=== PATIENT | male | born 1965 | race Caucasian/White ===

== ENCOUNTER 2016-12-27 07:16 | Emergency (ER) | payer OTHER ==
[2016-12-27 07:30] VITALS: BP 153/94
== END 2016-12-27 07:50 | disposition left against medical advice (07) ==
LOC: ED 07:16
DX: R09.89 Other specified symptoms and signs involving the circulatory and respiratory systems (principal)
CPT/HCPCS: 99281

== ENCOUNTER 2016-12-27 08:41 | Emergency (ER) | payer OTHER ==
[2016-12-27 08:55] VITALS: BP 132/75
== END 2016-12-27 09:35 | disposition left against medical advice (07) ==
LOC: UCEAST 08:41
DX: R51 Headache (principal); R05 Cough; Z53.21 Procedure and treatment not carried out due to patient leaving prior to being seen by health care provider

== ENCOUNTER 2017-07-12 07:51 | Day surgery (SDC) | payer OTHER ==
[~2017-07-12 07:51] MED LIST: Buffered Lidocaine 0.9% SYRIN* 5 ML/SYR SYRINGE INTRADERM ONE; Sodium Citrate/Citric Acid* 15 ML UDC PO ONE
[2017-07-12] MEDS ORDERED: ceFAZolin 2 GM PREMIX (*) 2 GM/50 ML BAG IVPB ONE (08:01)
[2017-07-12] MEDS ORDERED: Sodium Citrate/Citric Acid* 15 ML UDC ONE (08:01)
[2017-07-12] MEDS ORDERED: Midazolam* 1 MG/ML 2 ML VIAL (2 MG) ONE ×2 (09:12→11:23)
[2017-07-12] MEDS ORDERED: fentaNYL* 50 MCG/ML 2 ML VIAL (100 MCG VIAL) ONE ×3 (09:12→13:20)
[2017-07-12] MEDS ORDERED: Lidocaine 2% PF * 5 ML VIAL ONE (09:12)
[2017-07-12] MEDS ORDERED: Propofol* 10 MG/ML 20 ML BTL IV PUSH ONE (09:12)
[2017-07-12] MEDS ORDERED: Bupivacaine 0.25% SDV* 30 ML ONE (09:23)
[2017-07-12] MEDS ORDERED: Ondansetron INJ* 2 MG/ML VIAL IV PRN (09:35)
[2017-07-12] MEDS ORDERED: Ketorolac INJ* 30 MG/ML 1 ML VIAL IV PRN (09:35)
[2017-07-12] MEDS ORDERED: Dexamethasone IV* 4 MG/ML 1 ML (4 MG) ONE (09:50)
[2017-07-12] MEDS ORDERED: Ketorolac INJ* 30 MG/ML 1 ML VIAL ONE (13:01)
[2017-07-12] MEDS ORDERED: Ondansetron INJ* 2 MG/ML VIAL ONE (13:02)
[2017-07-12] MEDS ORDERED: HYDROcodone/ACETAMIN 5-325 MG* 1 TAB ONE ×2 (13:20→13:43)
[2017-07-12] MEDS: fentaNYL* 50 MCG/ML 2 ML VIAL (100 MCG VIAL) IV PRN ×2 (13:24→13:50)
[2017-07-12 14:54] VITALS: BP 118/78
--- NOTE | 2017-07-13 04:53 | OP ---
DATE OF OPERATION: 07/12/17 - [facility] DATE OF : 65 SURGEON: Jimbo Alexander MD FLATWORK FOLDER: LYLE Henry. An assistant casino shift manager was needed for the entirety of the procedure to aid in positioning of the arm and retraction. ANESTHESIOLOGIST: Dr. Carlson. ANESTHESIA: General. PRE-OP DIAGNOSIS: Left hand severe Dupuytren's contractures with severe contractures of middle, ring and completely flexed down small finger with contractures at the MCP and PIP joints. POST-OP DIAGNOSIS: Left hand severe Dupuytren's contractures with severe contractures of middle, ring and completely flexed down small finger with contractures at the MCP and PIP joints. OPERATIVE PROCEDURE: 1. Excision of Dupuytren's disease, left palm and middle finger. 2. Excision of Dupuytren's disease, left palm and ring finger. 3. Excision of Dupuytren's disease, left palm and small finger. INDICATIONS: Peter has severe disease bilaterally. He recently injured his foot and so he is laid up and he thought this would be a good time to have intervention done on the hands. I recommended a XIAFLEX injection for the right hand and I told him that given the severity of the disease on the left, it would be better served by surgery. We had an extensive conversation about the small finger. I told him that given the severity of the contracture, we could try Digit Widget preoperatively; however, he does not have that much time to invest and wants to see how much correction he could get with release of the Dupuytren's disease. I told him that he would certainly get quite a bit of contracture remaining even after full Dupuytren's release as the finger has been down in the palm for quite sometime. He understands we may need to a Digit Widget in the future to see if we can get improvement in the contracture. ESTIMATED BLOOD LOSS: 5 mL. COMPLICATIONS: None. FINDINGS: As expected. DESCRIPTION OF PROCEDURE: Peter was seen in the preoperative holding area. The correct side, site and the procedure were identified. We came back to the operating room, the arm was prepped and draped in the usual fashion. A time- out was performed. The arm was exsanguinated with the Esmarch and the tourniquet inflated to 250 mmHg. I then made a longitudinal incision in line with the middle finger and marked out my anticipated Z-plasty flaps prior to making the incision at the joint creases. I went ahead and identified the cord proximally and raised the skin flaps the dermis from the cord. I went ahead and released the cord proximally and then followed out distally releasing the vertical septi on either side of the tendon deep at where they came off the metacarpal. Great care was taken to preserve the neurovascular bundles on either side. As I came out distal, I went ahead and released it off the tendon sheath and down on to the proximal phalanx. Also, there was a spiral cord coming out on to the middle finger with the digital neurovascular bundle draped over the spiral cord. Great care was taken to preserve the neurovascular bundle while this was excised. I then made a similar incision over the ring finger. Skin flaps were raised. The cord was transected proximally and then excised out distally taking great care to preserve the neurovascular bundle, again there was a spiral cord and then bit of a retrovascular cord as well. I went ahead and released and excised all of the Dupuytren's tissue in the ring finger all the way up to the middle phalanx. I then turned my attention to the small finger, I worked very slow and started in the palm. The Dupuytren's cord was released proximally. The excision was carried out distally. The spiral cord on the radial side of the finger was released taking care to preserve the neurovascular bundle. Once all the Dupuytren's tissue was excised, I was able to fully extend the finger out, it was very tight and definitely came back into about 60 to 70 degrees of flexion at the PIP joint. I examined the finger for any more Dupuytren's tissue, I could not locate any and at this point, I went ahead and irrigated out all the wounds. I first came to my middle finger and I raised my Z-plasty flaps, these were transposed. The flaps were taken at 45-degree angles. I did the same for the middle and small fingers. When all was said and done, there was a triangular area over the A1 cullen area of the small finger where there was not adequate skin, so I went ahead and left that wound open. All the wounds were closed with 4-0 nylons, simple interrupted sutures. All the operative sites were infiltrated with 0.25% Marcaine. Tourniquet was deflated. All the fingers pinked up. The wounds were dressed with Xeroform, 4x4s, sterile Webril and a splint was applied holding the middle and ring fingers in full extension and the small finger in as much extension as possible. He was then woken up and taken to recovery room in stable condition. [id number]/[facility] #: [id number] MTDMariah
== END 2017-07-12 14:49 | disposition home or self-care (01) ==
LOC: OREAST 07:51
PROVIDERS: ATTEND Orthopaedic Surgery Hand Surgery
DX: M72.0 Palmar fascial fibromatosis [Dupuytren] (principal); F17.210 Nicotine dependence, cigarettes, uncomplicated
CPT/HCPCS: 88304; A9270-GY; J0690; J1100; J1885; J2250; J2405; J2704; J3010

== ENCOUNTER 2019-09-26 12:38 | Emergency (ER) | payer BC, OTHER ==
[2019-09-26 13:51] LABS: ABS Eosinophils 0.1 10^3/ul (0-0.6); ABS Lymphocytes 2.3 10^3/ul (1.0-4.8); ABS Monocytes 0.7 10^3/ul (0-0.8); ABS Neutrophils 4.8 10^3/ul (1.5-7.7); Eosinophil % 1.2 %; Hematocrit 46 % (42-52); Hemoglobin 16.8 g/dL (14.0-18.0); Mean Corpuscular HGB Conc 36 g/dL (31-36); Mean Corpuscular Hemoglobin 33 pg (27-31); Mean Corpuscular Volume 90 fL (80-94); Mean Platelet Volume 7.5 fL (7.4-10.4); Platelet Count 214 10^3/uL (150-450); Red Blood Count 5.15 10^6 /uL (4.18-5.48); Red Cell Distribution Width 13 % (10-15); White Blood Count 7.9 10^3/uL (3.5-10.8)
[2019-09-26 14:02] LABS: Albumin 4.5 g/dL (3.2-5.2); Albumin/Globulin Ratio 1.5 (1-3); BUN/Creatinine Ratio 12.2 (8-20); C Reactive Protein 6.36 mg/L (<8.01); Calcium 9.7 mg/dL (8.6-10.3); EGFR African American 96.4 (>60); EGFR Non-African American 79.7 (>60); Globulin 3.1 g/dL (2-4); Potassium 3.4 mmol/L (3.5-5.0); Total Bilirubin 0.5 mg/dL (0.2-1.0); Total Protein 7.6 g/dL (6.4-8.9)
--- NOTE | 2019-09-26 14:33 | ED ---
HPI Chest Pain - HPI Summary HPI Summary: This pt is a 54 Y/O M presenting to [facility] with a CC of L sided CP that is rated a 4/10 in severity and began on 09/23/2019. He states that he also has SOB and diaphoresis. When he takes a deep breath he states that the pain radiates to his back. He states that prior to the CP he had diarrhea that he believes was caused by drinking excessive amounts of alcohol. He denies any fever, headaches , chills, and abdominal pains. He denies any aggravating or alleviating factors. He has no pertinent PMHx. He has a SHx of cigarette use, alcohol, and states that he smokes marijuana. - History of Current Complaint Chief Complaint: EDChestPainROMI Time Seen by Provider: 09/26/19 13:50 Hx Obtained From: Patient Onset/Duration: Started Days Ago - 3 Timing: Constant Initial Severity: Moderate Current Severity: Moderate Pain Intensity: 4 Pain Scale Used: 0-10 Numeric Chest Pain Location: Discrete at:, Left Anterior Chest Pain Radiates: Yes Chest Pain Radiates To:: Back - with cough Aggravating Factor(s): Nothing Alleviating Factor(s): Nothing Associated Signs and Symptoms: Positive: Negative - diarrhea, Chest Pain, Shortness of Breath, Nausea, Cough. Negative: Headaches, Fever, Chills, Abdominal Pain - Allergy/Home Medications Allergies/Adverse Reactions: Allergies Allergy/AdvReac Type Severity Reaction Status Date / Time No Known Allergies Allergy Verified 09/26/19 12:48 Home Medications: Home Medications NK [No Home Medications Reported] 09/26/19 [History Confirmed 09/26/19] PMH/Surg Hx/FS Hx/Imm Hx Previously Healthy: Yes Endocrine/Hematology History: Denies: Hx Diabetes, Hx Thyroid Disease Cardiovascular History: Denies: Hx Hypertension, Hx Pacemaker/ICD Respiratory History: Denies: Hx Asthma, Hx Chronic Obstructive Pulmonary Disease (COPD) GI History: Denies: Hx Ulcer History: Denies: Hx Renal Disease Sensory History: Denies: Hx Contacts or Glasses, Hx Hearing Aid Opthamlomology History: Denies: Hx Contacts or Glasses Neurological History: Reports: Hx Migraine - treats with ibuprofen Denies: Hx Seizures, Other Neuro Impairments/Disorders Psychiatric History: Denies: Hx Panic Disorder - Cancer History Hx Chemotherapy: No Hx Radiation Therapy: No - Surgical History Surgical History: Yes Surgery Procedure, Year, and Place: APPENDIX A CHILD, CERVICAL SPINE FUSION 12+ YRS AGO Hx Anesthesia Reactions: Yes - STATES WAKES UPSET ANGRY Infectious Disease History: No Infectious Disease History: Denies: Hx Clostridium Difficile, Hx Hepatitis, Hx Human Immunodeficiency Virus (HIV), Hx of Known/Suspected MRSA, Hx Shingles, Hx Tuberculosis, Hx Known/ Suspected VRE, Hx Known/Suspected VRSA, History Other Infectious Disease, Traveled Outside the [place] in Last 30 Days - Family History Known Family History: Positive: Cardiac Disease, Hypertension - Social History Occupation: Employed Full-time Lives: With Family Alcohol Use: Weekly Alcohol Amount: ONCE PER WEEK-SEVERAL AT THAT TIME Hx Substance Use: Yes Substance Use Type: Reports: Marijuana Substance Use Comment - Amount & Last Used: WEEKLY Hx Tobacco Use: Yes Smoking Status (MU): Heavy Every Day Tobacco Smoker Amount Used/How Often: 1/2 PPD X 40+YRS Have You Smoked in the Last Year: Yes Review of Systems Negative: Fever, Chills Positive: Chest Pain Positive: Shortness Of Breath, Cough Positive: Diarrhea, Nausea. Negative: Abdominal Pain, Vomiting Negative: Headache All Other Systems Reviewed And Are Negative: Yes Physical Exam - Summary Physical Exam Summary: VITAL SIGNS: Reviewed. GENERAL: Patient is a well-developed and nourished male who is lying comfortable in the stretcher. Patient is not in any acute respiratory distress. HEAD AND FACE: No signs of trauma. No ecchymosis, hematomas or skull depressions. No sinus tenderness. EYES: PERRLA, EOMI x 2, No injected conjunctiva, no nystagmus. EARS: Hearing grossly intact. Ear canals and tympanic membranes are within normal limits. MOUTH: Oropharynx within normal limits. NECK: Supple, trachea is midline, no adenopathy, no JVD, no carotid bruit, no c- spine tenderness, neck with full ROM. CHEST: Symmetric, no tenderness at palpation. LUNGS: Clear to auscultation bilaterally. No wheezing or crackles. CVS: Regular rate and rhythm, S1 and S2 present, no murmurs or gallops appreciated. ABDOMEN: Soft, non-tender. No signs of distention. No rebound, no guarding, and no masses palpated. Bowel sounds are normal. EXTREMITIES: FROM in all major joints, no edema, no cyanosis or clubbing. NEURO: Alert and oriented x 3. No acute neurological deficits. Speech is normal and follows commands. SKIN: Dry and warm. Triage Information Reviewed: Yes Vital Signs On Initial Exam: Initial Vitals Temp Pulse Resp BP Pulse Ox 98.8 F 118 18 123/82 100 09/26/19 12:44 09/26/19 12:44 09/26/19 12:44 09/26/19 12:44 09/26/19 12:44 Vital Signs Reviewed: Yes Procedures - Sedation Patient Received Moderate/Deep Sedation with Procedure: No Diagnostics - Vital Signs Vital Signs Temp Pulse Resp BP Pulse Ox 09/26/19 12:44 98.8 F 118 18 123/82 100 - Laboratory Lab Results: Lab Results 09/26/19 09/26/19 09/26/19 Range/Units 13:23 13:23 13:23 WBC 7.9 (3.5-10.8) 10^3/uL RBC 5.15 (4.18-5.48) 10^6 /uL Hgb 16.8 (14.0-18.0) g/dL Hct 46 (42-52) % MCV 90 (80-94) fL MCH 33 H (27-31) pg MCHC 36 (31-36) g/dL RDW 13 (10-15) % Plt Count 214 (150-450) 10^3/uL MPV 7.5 (7.4-10.4) fL Neut % (Auto) 61.0 % Lymph % (Auto) 29.0 % [place] % (Auto) 8.5 % Eos % (Auto) 1.2 % Baso % (Auto) 0.3 % Absolute Neuts (auto) 4.8 (1.5-7.7) 10^3/ul Absolute Lymphs (auto) 2.3 (1.0-4.8) 10^3/ul Absolute Monos (auto) 0.7 (0-0.8) 10^3/ul Absolute Eos (auto) 0.1 (0-0.6) 10^3/ul Absolute Basos (auto) 0.0 (0-0.2) 10^3/ul Absolute Nucleated RBC 0.0 10^3/ul Nucleated RBC % 0.0 Sodium 137 (135-145) mmol/L Potassium 3.4 L (3.5-5.0) mmol/L Chloride 102 (101-111) mmol/L Carbon Dioxide 26 (22-32) mmol/L Anion Gap 9 (2-11) mmol/L BUN 12 (6-24) mg/dL Creatinine 0.98 (0.67-1.17) mg/dL Est GFR ( Amer) 96.4 (>60) Est GFR (Non-Af Amer) 79.7 (>60) BUN/Creatinine Ratio 12.2 (8-20) Glucose 130 H (70-100) mg/dL Lactic Acid 1.1 (0.5-2.0) mmol/L Calcium 9.7 (8.6-10.3) mg/dL Total Bilirubin 0.50 (0.2-1.0) mg/dL AST 19 (13-39) U/L ALT 32 (7-52) U/L Alkaline Phosphatase 91 (34-104) U/L Total Creatine Kinase Pending CK-MB (CK-2) Pending Troponin I 0.00 (<0.03) ng/mL C-Reactive Protein 6.36 (<8.01) mg/L Total Protein 7.6 (6.4-8.9) g/dL Albumin 4.5 (3.2-5.2) g/dL Globulin 3.1 (2-4) g/dL Albumin/Globulin Ratio 1.5 (1-3) Lipase 37 (11.0-82.0) U/L Result Diagrams: 09/26/19 13:23 09/26/19 13:23 Lab Statement: Any lab studies that have been ordered have been reviewed, and results considered in the medical decision making process. - Radiology CXR Radiology Interpretation Completed By: Radiologist Summary of Radiographic Findings: No acute cardiopulmonary processes by radiograph. ED physician has reviewed this report. - EKG 1242 Cardiac Rate: Tachycardia - 115 BPM EKG Rhythm: Sinus Tachycardia Summary of EKG Findings: An EKG at 1242 reveals sinus tachycardia at 115 BPM with an anterior infarct. No STEMI. No acute changes. Interpreted by Dr. Garcia at 1246 09/26/2019. Chest Pain Course/Dx - Course Assessment/Plan: This pt is a 54 Y/O M presenting to [facility] with a CC of L sided CP that is rated a 4/10 in severity and began on 09/23/2019. He states that he also has SOB and diaphoresis. When he takes a deep breath he states that the pain radiates to his back. He states that prior to the CP he had diarrhea that he believes was caused by drinking excessive amounts of alcohol. He denies any fever, headaches, chills, and abdominal pains. He denies any aggravating or alleviating factors. He has no pertinent PMHx. He has a SHx of cigarette use, alcohol, and states that he smokes marijuana. Blood test results without any significant abnormality except for potassium level of 3.4. Troponin 1 is 0.00. Troponin #2, 4 hours apart, is also 0.00. EKG shows a normal sinus rhythm without any ST elevation. Chest x-ray shows no acute pathology. In the ED course the patient was given torodal for the pain. Patient reports that all symptoms have resolved. Patient Heart score is: 1 therefore, low suspicion for CAD. Patient is not hypoxic or tachycardic. Wells criteria 0 . Therefore, no suspicion for PE. Patient has no abdominal bruit thus no suspicion for AAA. Patients pain does not radiate to the back and pain has resolved thus low suspicion for aortic dissection. I discussed all the findings and test results with the patient. Patient was instructed to return to the emergency room immediately if any of the symptoms return or worsen. Patient understands and agrees. Plan of care was discussed with the patient and patient understands and agrees. All questions were answered at patient satisfaction. There were no further complaints or concerns. PE before discharge: CVS: S1 and S2 present. No murmurs appreciated. Abdominal exam before discharge: Soft, non-tender. No signs of distention. No rebound no guarding, and no masses palpated. Bowel sounds are normal. Patient is alert and oriented x 3. Patient is hemodynamically stable. - Chest Pain Differential Diagnosis/HQI/PQRI: Acute IN, ACS, Angina, CHF, Chest Wall, GI Disease, Lower Respiratory Infection - Diagnoses Provider Diagnoses: Atypical chest pain Discharge ED - Sign-Out/Discharge Documenting (check all that apply): Patient Departure - discharge - Discharge Plan Condition: Good Disposition: HOME Patient Education Materials: Chest Pain (ED) Referrals: [facility] [Outside] Additional Instructions: PLEASE FOLLOW UP WITH THE [facility] TO HAVE HELP FINDING A PRIMARY CARE PHYSICIAN. RETURN TO THE EMERGENCY DEPARTMENT FOR ANY NEW OR WORSENING SYMPTOMS. - Billing Disposition and Condition Condition: GOOD Disposition: Home - Attestation Statements Document Initiated by Itzibkrystian: Yes Documenting Scribe: Nolberto Valadez Provider For Whom Lisbeth is Documenting (Include Credential): Amado Bianchi MD Scribe Attestation: Nolberto Lu, scribed for Amado Bianchi MD on 09/26/19 at 1828. Scribe Documentation Reviewed: Yes Provider Attestation: The documentation as recorded by the Nolberto castillo accurately reflects the service I personally performed and the decisions made by , Amado Bianchi MD Status of Scribe Document: Viewed
[2019-09-26 14:41] LABS: CKMB ng/mL 1.1 ng/mL (0.6-6.3)
[2019-09-26 14:53] LABS: INR 0.99 (0.82-1.09)
[2019-09-26] MEDS ORDERED: Ketorolac INJ* 30 MG/ML 1 ML VIAL IV PUSH ONE (15:56)
[2019-09-26] MEDS ORDERED: Potassium Chlor TAB* 20 MEQ TAB.ER PO ONE (16:17)
[2019-09-26 17:07] VITALS: BP 108/59
== END 2019-09-26 17:06 | disposition home or self-care (01) ==
LOC: ED 12:38
DX: R07.89 Other chest pain (principal); F17.210 Nicotine dependence, cigarettes, uncomplicated; Z90.89 Acquired absence of other organs
CPT/HCPCS: 36415; 71046; 80053; 82550; 82553; 83605; 83690; 84484; 85025; 85610; 85730; 86140; 93005; 99283; A9270-GY

== ENCOUNTER 2019-09-29 02:16 | Inpatient (IN) | payer BC ==
[2019-09-29 02:47] LABS: ABS Basophils 0.1 10^3/ul (0-0.2); ABS Eosinophils 0.1 10^3/ul (0-0.6); ABS Lymphocytes 2.5 10^3/ul (1.0-4.8); ABS Monocytes 1.2 10^3/ul (0-0.8); ABS Neutrophils 10.8 10^3/ul (1.5-7.7); Eosinophil % 0.6 %; Hematocrit 49 % (42-52); Hemoglobin 17.3 g/dL (14.0-18.0); Lymphocyte % 17.3 %; Mean Corpuscular HGB Conc 35 g/dL (31-36); Mean Corpuscular Hemoglobin 32 pg (27-31); Mean Corpuscular Volume 90 fL (80-94); Mean Platelet Volume 7.3 fL (7.4-10.4); Platelet Count 217 10^3/uL (150-450); Red Cell Distribution Width 13 % (10-15); White Blood Count 14.7 10^3/uL (3.5-10.8)
[2019-09-29 03:00] LABS: ALT 27 U/L (7-52); AST 16 U/L (13-39); Albumin 4.4 g/dL (3.2-5.2); Albumin/Globulin Ratio 1.3 (1-3); Alkaline Phosphatase 100 U/L (34-104); Anion Gap 10 mmol/L (2-11); BUN/Creatinine Ratio 10.6 (8-20); Blood Urea Nitrogen 10 mg/dL (6-24); CO2 Carbon Dioxide 23 mmol/L (22-32); Calcium 9.7 mg/dL (8.6-10.3); Chloride 101 mmol/L (101-111); EGFR African American 101.2 (>60); EGFR Non-African American 83.6 (>60); Globulin 3.5 g/dL (2-4); Glucose 136 mg/dL (70-100); Potassium 3.5 mmol/L (3.5-5.0); Sodium 134 mmol/L (135-145); Total Protein 7.9 g/dL (6.4-8.9)
--- NOTE | 2019-09-29 03:33 | ED ---
Abdominal Pain/Male - HPI Summary HPI Summary: Patient is a 54 y/o M presenting to [facility] with cc of cramping epigastric/ umbilical pressure and pain and constipation for a week. He reports he was here 09/26/2019 with similar symptoms and but had a negative cardiac workup. That night, he drank bottle whiskey and had diarrhea. He has since not had any passing of stool, which is abnormal for him as he usually has multiple BMs daily. He denies any nausea, vomiting, or fevers. He endorses decreased appetite d/t pain. 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 Symptoms currently rated 8/10 in severity. Deep breathing aggravates the pain. PMHx: appendectomy. Current smoker, weekly EtOH, marijuana use. Medications reviewed. Allergies noted. - History of Current Complaint Chief Complaint: EDAbdPain Stated Complaint: CONSTIPATED PER PT Time Seen by Provider: 09/29/19 02:28 Hx Obtained From: Patient Onset/Duration: Gradual Onset, Lasting Days, Still Present Timing: Constant Severity Initially: Moderate Severity Currently: Severe Pain Intensity: 8 Pain Scale Used: 0-10 Numeric Location: Epigastric, Umbilical Radiates: No Character: Cramping, Other: - pressure Aggravating Factor(s): Food, Deep Breaths Alleviating Factor(s): Nothing Associated Signs And Symptoms: Positive: Decreased Appetite - d/t pain. Negative: Fever, Nausea, Vomiting - Allergies/Home Medications Allergies/Adverse Reactions: Allergies Allergy/AdvReac Type Severity Reaction Status Date / Time No Known Allergies Allergy Verified 09/29/19 02:19 Home Medications: Home Medications Senna TAB 8.6 mg* [Senokot 8.6 mg TAB*] 2 tab PO DAILY PRN 09/29/19 [History Confirmed 09/29/19] PMH/Surg Hx/FS Hx/Imm Hx Endocrine/Hematology History: Denies: Hx Diabetes, Hx Thyroid Disease Cardiovascular History: Denies: Hx Hypertension, Hx Pacemaker/ICD Respiratory History: Denies: Hx Asthma, Hx Chronic Obstructive Pulmonary Disease (COPD) GI History: Denies: Hx Ulcer History: Denies: Hx Renal Disease Sensory History: Denies: Hx Contacts or Glasses, Hx Hearing Aid Opthamlomology History: Denies: Hx Contacts or Glasses Neurological History: Reports: Hx Migraine - treats with ibuprofen Denies: Hx Seizures, Other Neuro Impairments/Disorders Psychiatric History: Denies: Hx Panic Disorder - Cancer History Hx Chemotherapy: No Hx Radiation Therapy: No - Surgical History Surgical History: Yes Surgery Procedure, Year, and Place: APPENDIX A CHILD, CERVICAL SPINE FUSION 12+ YRS AGO Hx Anesthesia Reactions: Yes - STATES WAKES UPSET ANGRY - Immunization History Immunizations Up to Date: Unable to Obtain/Confirm Infectious Disease History: Yes Infectious Disease History: Denies: Hx Clostridium Difficile, Hx Hepatitis, Hx Human Immunodeficiency Virus (HIV), Hx of Known/Suspected MRSA, Hx Shingles, Hx Tuberculosis, Hx Known/ Suspected VRE, Hx Known/Suspected VRSA, History Other Infectious Disease, Traveled Outside the [place] in Last 30 Days - Family History Known Family History: Positive: Cardiac Disease, Hypertension - Social History Alcohol Use: Weekly Alcohol Amount: ONCE PER WEEK-SEVERAL AT THAT TIME Hx Substance Use: Yes Substance Use Type: Reports: Marijuana Substance Use Comment - Amount & Last Used: WEEKLY Hx Tobacco Use: Yes Smoking Status (MU): Heavy Every Day Tobacco Smoker Amount Used/How Often: 1/2 PPD X 40+YRS Have You Smoked in the Last Year: Yes Review of Systems Negative: Fever Positive: Abdominal Pain - epigastric/umbilical, cramping pressure, Diarrhea, Other - decreased oral intake, constipation. Negative: Vomiting, Nausea All Other Systems Reviewed And Are Negative: Yes Physical Exam - Summary Physical Exam Summary: Constitutional: Well-developed, Well-nourished, Alert. (-) Distressed Skin: Warm, Dry HENT: Normocephalic; Atraumatic Eyes: Conjunctiva normal Neck: Musculoskeletal ROM normal neck. (-) JVD, (-) Stridor, (-) Nuchal rigidity Cardio: Rhythm regular, rate normal, Heart sounds normal; Intact distal pulses; Radial pulses are 2+ and symmetric. (-) Murmur Pulmonary/Chest wall: Effort normal. (-) Respiratory distress, (-) Wheezes, (-) Rales Abd: Soft, (+) mild generalized tenderness, (-) Distension, (-) Guarding, (-) Rebound Musculoskeletal: (-) Edema Lymph: (-) Cervical adenopathy Neuro: Alert, Oriented x3 Psych: Mood and affect Normal Triage Information Reviewed: Yes Vital Signs On Initial Exam: Initial Vitals Temp Pulse Resp BP Pulse Ox 97.8 F 122 15 169/103 97 09/29/19 02:18 09/29/19 02:18 09/29/19 02:18 09/29/19 02:18 09/29/19 02:18 Vital Signs Reviewed: Yes Procedures - Sedation Patient Received Moderate/Deep Sedation with Procedure: No Diagnostics - Vital Signs Vital Signs Temp Pulse Resp BP Pulse Ox 09/29/19 02:18 97.8 F 122 15 169/103 97 - Laboratory Lab Results: Lab Results 09/29/19 09/29/19 Range/Units 02:38 02:38 WBC 14.7 H (3.5-10.8) 10^3/uL RBC 5.40 (4.18-5.48) 10^6 /uL Hgb 17.3 (14.0-18.0) g/dL Hct 49 (42-52) % MCV 90 (80-94) fL MCH 32 H (27-31) pg MCHC 35 (31-36) g/dL RDW 13 (10-15) % Plt Count 217 (150-450) 10^3/uL MPV 7.3 L (7.4-10.4) fL Neut % (Auto) 73.3 % Lymph % (Auto) 17.3 % [place] % (Auto) 8.4 % Eos % (Auto) 0.6 % Baso % (Auto) 0.4 % Absolute Neuts (auto) 10.8 H (1.5-7.7) 10^3/ul Absolute Lymphs (auto) 2.5 (1.0-4.8) 10^3/ul Absolute Monos (auto) 1.2 H (0-0.8) 10^3/ul Absolute Eos (auto) 0.1 (0-0.6) 10^3/ul Absolute Basos (auto) 0.1 (0-0.2) 10^3/ul Absolute Nucleated RBC 0.0 10^3/ul Nucleated RBC % 0.0 Sodium 134 L (135-145) mmol/L Potassium 3.5 (3.5-5.0) mmol/L Chloride 101 (101-111) mmol/L Carbon Dioxide 23 (22-32) mmol/L Anion Gap 10 (2-11) mmol/L BUN 10 (6-24) mg/dL Creatinine 0.94 (0.67-1.17) mg/dL Est GFR ( Amer) 101.2 (>60) Est GFR (Non-Af Amer) 83.6 (>60) BUN/Creatinine Ratio 10.6 (8-20) Glucose 136 H (70-100) mg/dL Calcium 9.7 (8.6-10.3) mg/dL Total Bilirubin 1.00 (0.2-1.0) mg/dL AST 16 (13-39) U/L ALT 27 (7-52) U/L Alkaline Phosphatase 100 (34-104) U/L Total Protein 7.9 (6.4-8.9) g/dL Albumin 4.4 (3.2-5.2) g/dL Globulin 3.5 (2-4) g/dL Albumin/Globulin Ratio 1.3 (1-3) Result Diagrams: 09/30/19 05:37 09/30/19 05:37 Lab Statement: Any lab studies that have been ordered have been reviewed, and results considered in the medical decision making process. - CT Abd/Pel CT CT Interpretation Completed By: Radiologist Summary of CT Findings: Impression: 1. Inflammatory changes in the area of the head of the pancreas. This may represent early pancreatitis. No walled-off fluid collection is seen. No associated ileus is noted. 2. Infrarenal abdominal aortic aneurysm. The aneurysm measures approximately 3 cm in AP length and 3.2 cm in width. Suggest follow-up ultrasound study of the abdominal aorta in 1 year. ED physician has reviewed this report. Re-Evaluation - Re-Evaluation First Eval Re-Evaluation Time: 06:00 Comment: d/w patient results, patient will receive pain meds prior to dispo Second Eval Re-Evaluation Time: 06:45 Comment: Patient still reporting pain, unable to tolerate PO. Will admit to medicine for early pancreatitis. Abdominal Pain Male Course/Dx - Course Course Of Treatment: 54 y/o male p/w abdominal distension and constipation. - Well appearing, NAD, abdomen w mild distension, mild diffuse tenderness. Labs w leukocytosis. Check CT a/p. Initial HR 120's, given IVF. Declines EKG. - CT a/ p shows early pancreatitis. D/w patient who feels like he cannot tolerate PO. Will admit to medicine - Diagnoses Provider Diagnoses: Abdominal aortic aneurysm, Constipation, Pancreatitis - Provider Notifications Discussed Care Of Patient With: Vaishali Lozano - hospitalist Time Discussed With Above Provider: 06:45 Instructed by Provider To: Other - I discussed the patients case with Dr. Lozano, who accepts the patient for admission. Discharge ED - Sign-Out/Discharge Documenting (check all that apply): Patient Departure - Patient accepted for admission by Dr. Lozano. - Discharge Plan Condition: Stable Disposition: ADMITTED TO [facility] - Billing Disposition and Condition Condition: STABLE Disposition: Admitted to [facility] - Attestation Statements Document Initiated by Lisbeth: Yes Documenting Scribe: Hetal Hay Provider For Whom Lisbeth is Documenting (Include Credential): Dr. Vu Eller MD Scribe Attestation: IHetal scribed for Dr. Vu Eller MD on 09/30/19 at 0750. Scribe Documentation Reviewed: Yes Provider Attestation: The documentation as recorded by the Hetal castillo accurately reflects the service I personally performed and the decisions made by me, Dr. Vu Eller MD Status of Scrconstance Document: Viewed
[2019-09-29] MEDS ORDERED: NS 0.9% 1000 ML** 1,000 ML IV ONE ×2 (04:24→06:12)
[2019-09-29] MEDS ORDERED: Iohexol 300* (CONTRAST) 10 ML SDV IV ONE (05:02)
[2019-09-29] MEDS ORDERED: Magnesium CITRATE* 300 ML BTL PO ONE (05:59)
[2019-09-29] MEDS ORDERED: oxyCODONE/Acetamin 5/325 MG* TAB PO ONE (06:12)
[2019-09-29] MEDS ORDERED: Ondansetron INJ* 2 MG/ML VIAL IV PRN (07:36)
[2019-09-29] MEDS: Morphine 4 MG/ML VIAL (1 ml) 4 MG/ML VIAL IV PRN ×2 (08:05→14:00)
[2019-09-29 08:06] LABS: Amylase 31 U/L (29-103)
[2019-09-29 08:38] LABS: Alcohol < 10 mg/dL (<10)
[2019-09-29] MEDS: Nicotine PATCH 14 MG/24 HR* PATCH TRANSDERM SCH (08:58)
--- NOTE | 2019-09-29 09:33 | HP ---
HISTORY AND PHYSICAL: DATE OF ADMISSION: 09/29/19 PRIMARY CARE PROVIDER: None. CHIEF COMPLAINT: Abdominal pain. HISTORY OF PRESENT ILLNESS: Mr. Barahona is a 54-year-old male who states that on 09/19/19 he binge drank more than he normally does. He states that he drank 6 to 8 beers as well as probably half a liter of Rayo Ortega. He notes that on 09/20/19 and 09/21/19 he had "the runs." He states that following that, he then felt extremely constipated. He developed abdominal pain. He was in the emergency room on 09/26/19 with what he described as initially chest pain. He complained of severe pain on the left side of his chest. He had a cardiac evaluation and ultimately was sent home from the emergency room. He continued to have severe pain, now moved to the right upper quadrant and epigastric area. He describes pain in the epigastrium as a pressure sensation. He feels pain straight through to his back. In the right upper quadrant, he was having bouts of stabbing pain. He cannot get comfortable at all. He changes positions several times and this does not help. He states nothing relieves the pain. After several minutes to at times hours, the pain will go away on its own. He states that he did not check his temperature at home. He thought he had chills yesterday. He has never had anything like this in the past. He has not been eating over the last 1 week or so. He has tried intermittently, but developed what he describes as severe heartburn. He is attempting to drink small amounts of water intermittently and is having a hard time even with that. PAST MEDICAL HISTORY: None. PAST SURGICAL HISTORY: 1. C4-5 diskectomy. 2. Appendectomy. 3. Left Dupuytren's contracture release. MEDICATIONS: Senna p.r.n. ALLERGIES: No known drug allergies. FAMILY HISTORY: Mom of coronary artery disease. Dad of "old age," he is unaware of his medical history. SOCIAL HISTORY: The patient is at least half-pack per day smoker for the last 46 years. He drinks alcohol in a binge nature as above. He smokes marijuana typically when he binge drinks. 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 He is . He has 2 children. His Zenaida would be his health care proxy. REVIEW OF SYSTEMS: The patient denies any fevers, admits to chills as above. He has had poor appetite. He admits to chest pain as above. No lower extremity edema. No cough. He states that he feels short of breath, but it is more that it hurts to take a deep breath. He admits to nausea, but has been unable to vomit. He has abdominal pain as noted above. He states he has not passed any stool except for perhaps a very small amount a few days ago. Flatus has been minimal over the last 1 week. No hematuria, no dysuria. No focal weakness or sensory loss, though he does state when he coughs he gets pain down his left arm, this has been chronic. No sudden changes in vision. No dysphagia. No joint pains or muscles pains out of the ordinary. No rashes. He does admit to anxiety. PHYSICAL EXAMINATION GENERAL: The patient is a well-developed, middle-aged male who changes positions several times during the course of my evaluation to try to get comfortable. VITAL SIGNS: Blood pressure 118/94, pulse 111, respirations 20, temp 97.8, O2 sat 97% on room air. HEENT: Pupils are equal. Extraocular muscles are intact. Oropharynx is clear. The patient has a torus palatinus. There is no submandibular, cervical, or supraclavicular adenopathy. PULMONARY: Lungs are clear to auscultation bilaterally. CARDIAC: Normal S1 and S2. Heart rate is tachycardic, but regular. There are no murmurs. There is no lower extremity edema. ABDOMEN: Bowel sounds present. Abdomen is what appears to be mildly distended , though the patient states this is usual. The abdomen is semi-firm, though I am able to palpate. The patient states he has diffuse pain with this, though it is worse in the right upper quadrant. MUSCULOSKELETAL: The patient moves all 4 extremities symmetrically. SKIN: Visible areas of skin are warm and dry and without rash. NEUROLOGIC: Cranial nerves II through XII are grossly intact. Sensation is intact to light touch throughout. Strength is 5/5 and symmetric in both upper and lower extremities bilaterally. PSYCH: The patient is alert. He appears distracted by the pain. DIAGNOSTIC DATA/LAB DATA: WBC 14.7, hemoglobin 17.3, hematocrit 49, platelets 217. Sodium 134, potassium 3.5, chloride 101, CO2 of 23, BUN 10, creatinine 0.94 , glucose 136, calcium 9.7, bilirubin 1, AST 16, ALT 27, alk phos 100, albumin 4.4, lipase 61, serum alcohol level pending. CT abdomen and pelvis: There are inflammatory changes in the area of the head of the pancreas. This may represent early pancreatitis. There are no walled-off fluid collections seen. There is no associated ileus noted. There is an infrarenal abdominal aortic aneurysm. The aneurysm measures approximately 3 cm in AP length and 3.2 cm in width. The patient will need ultrasound study of the abdominal aorta in 1 year. ASSESSMENT AND PLAN: Mr. Barahona is a 54-year-old male with no reported past medical history who presents to the emergency room with complaints of 1-week worth of abdominal pain with associated decrease in bowel movement frequency and is found to have possible early pancreatitis. 1. Early pancreatitis. At this point, the patient's symptoms are most likely secondary to early pancreatitis. The pancreatitis was likely triggered by the binge drinking late August. His symptoms began after that. He will be admitted and placed on n.p.o. status. Aggressive IV fluid hydration will be utilized. He will be given normal saline at 150 mL per hour. He will additionally have p.r.n. morphine and Zofran for pain and nausea control. I have ordered a lipid profile for tomorrow morning to check his triglycerides. He does tell me that his cholesterol in the past had been elevated, though this was many years ago and he never followed up on this. The degree of the patient' s pain and inability to get comfortable in a single position is concerning to me. We will watch closely through today. If this continues, I will ask for GI consultation. Additionally, given the pain in the right upper quadrant, I questioned possible gallbladder pathology. On CT scan this appears fine; however, again if with treatment for pancreatitis he does not improve, we will get a gallbladder ultrasound. 2. Tobacco abuse. The patient smokes half a pack per day and has done so for many years. We will start a nicotine patch. We will encourage smoking cessation. 3. DVT prophylaxis. According to the Adult Thrombosis Prophylaxis Risk Factor Assessment Guide, the patient has a total risk factor score of 1 making his low risk. Ambulation will be utilized as DVT prophylaxis. Code status is full. TIME SPENT: Sixty-five minutes was spent admitting this patient. [id number]/[facility] #: [id number] MTDD
[2019-09-29] MEDS: NS 0.9% 1000 ML** 1,000 ML IV SCH ×2 (11:17→20:42)
[2019-09-29] MEDS: Morphine INJ* 4 MG/ML 1 ML SYRINGE (NEW SYRINGE VERSION) IV PRN ×3 (14:00→23:34)
[2019-09-29] MEDS ORDERED: Lactated Ringers 1000 ML Bag* 1,000 ML IV ONE (17:00)
[2019-09-29] MEDS: Nicotine Patch Removal NOTE FOLLOW UP SCH (20:45)
[2019-09-30] MEDS: NS 0.9% 1000 ML** 1,000 ML IV SCH ×3 (03:26→16:56)
[2019-09-30] MEDS: Morphine INJ* 4 MG/ML 1 ML SYRINGE (NEW SYRINGE VERSION) IV PRN ×5 (03:27→21:02)
[2019-09-30 05:52] LABS: Hematocrit 42 % (42-52); Hemoglobin 14.5 g/dL (14.0-18.0); Mean Corpuscular HGB Conc 35 g/dL (31-36); Mean Corpuscular Hemoglobin 32 pg (27-31); Mean Corpuscular Volume 92 fL (80-94); Mean Platelet Volume 7.1 fL (7.4-10.4); Platelet Count 184 10^3/uL (150-450); Red Blood Count 4.57 10^6 /uL (4.18-5.48); Red Cell Distribution Width 13 % (10-15); White Blood Count 15.4 10^3/uL (3.5-10.8)
[2019-09-30 06:14] LABS: Albumin 3.7 g/dL (3.2-5.2); Albumin/Globulin Ratio 1.2 (1-3); BUN/Creatinine Ratio 8.5 (8-20); Calcium 8.6 mg/dL (8.6-10.3); EGFR African American 118.5 (>60); EGFR Non-African American 97.9 (>60); Globulin 3.1 g/dL (2-4); HDL Cholesterol 42.1 mg/dL; Indirect Bilirubin 0.8 mg/dL (0.3-1.0); Potassium 3.9 mmol/L (3.5-5.0); Total Bilirubin 1.1 mg/dL (0.2-1.0); Total Protein 6.8 g/dL (6.4-8.9)
[2019-09-30] MEDS: Nicotine PATCH 14 MG/24 HR* PATCH TRANSDERM SCH (08:45)
--- NOTE | 2019-09-30 11:52 | PN ---
Subjective Date of Service: 09/30/19 Interval History: Mr. Barahona states that he has colicky RUQ pain with associated nausea; morphine helps with pain. He denies vomiting. He had a fever yesterday, but reports none overnight. He reports flatus today for the first time in 1 week. He reports constipation. He has no other complaints today. Objective Active Medications: Sodium Chloride (Ns 0.9% 1000 Ml) 1,000 mls @ 150 mls/hr IV PER RATE [facility] Last Admin: 09/30/19 10:06 Dose: 150 mls/hr Morphine Sulfate (Morphine Inj (Syringe)*) 4 mg IV Q4H PRN PRN Reason: PAIN - SEVERE Last Admin: 09/30/19 08:35 Dose: 4 mg Nicotine (Nicotine Patch 14 Mg/24 Hr*) 1 patch TRANSDERM DAILY [facility] Last Admin: 09/30/19 08:45 Dose: Not Given Ondansetron HCl (Zofran Inj*) 4 mg IV Q6H PRN PRN Reason: NAUSEA Last Admin: 09/29/19 08:05 Dose: 4 mg Pharmacy Profile Note (Nicotine Patch Removal Note*) 1 note FOLLOW UP 2100 [facility] Last Admin: 09/29/19 20:45 Dose: 1 note Simethicone (Mylicon Tab*) 80 mg PO Q6H PRN PRN Reason: indigestion, gas Vital Signs: Temp Pulse Resp BP Pulse Ox 98.9 F 110 18 99/79 95 09/30/19 07:15 09/30/19 07:15 09/30/19 10:12 09/30/19 07:15 09/30/19 07:15 Oxygen Devices in Use Now: None Appearance: Mr. Barahona is an overweight, middle-aged white male who is laying in bed. He appears mildly uncomfortable and agitated. He is cooperative and appropriate. Ears/Nose/Mouth/Throat: NL Teeth, Lips, Gums, Clear Oropharnyx, - - dry oral mucosa Neck: NL Appearance and Movements; NL JVP, Trachea Midline Respiratory: Symmetrical Chest Expansion and Respiratory Effort, Clear to Auscultation Cardiovascular: NL Sounds; No Murmurs; No JVD, No Edema, - - sinus tachycardia Abdominal: - - abdominal distention with hypoactive BS; abdomen mildly tender to palpation throughout; negative Sanches's sign Extremities: No Edema, No Clubbing, Cyanosis Neurological: Alert and Oriented x 3 Result Diagrams: 09/30/19 05:37 09/30/19 05:37 Additional Lab and Data: Lab Results 09/29/19 09/29/19 Range/Units 02:38 02:38 WBC 14.7 H (3.5-10.8) 10^3/uL RBC 5.40 (4.18-5.48) 10^6 /uL Hgb 17.3 (14.0-18.0) g/dL Hct 49 (42-52) % MCV 90 (80-94) fL MCH 32 H (27-31) pg MCHC 35 (31-36) g/dL RDW 13 (10-15) % Plt Count 217 (150-450) 10^3/uL MPV 7.3 L (7.4-10.4) fL Neut % (Auto) 73.3 % Lymph % (Auto) 17.3 % [place] % (Auto) 8.4 % Eos % (Auto) 0.6 % Baso % (Auto) 0.4 % Absolute Neuts (auto) 10.8 H (1.5-7.7) 10^3/ul Absolute Lymphs (auto) 2.5 (1.0-4.8) 10^3/ul Absolute Monos (auto) 1.2 H (0-0.8) 10^3/ul Absolute Eos (auto) 0.1 (0-0.6) 10^3/ul Absolute Basos (auto) 0.1 (0-0.2) 10^3/ul Absolute Nucleated RBC 0.0 10^3/ul Nucleated RBC % 0.0 Sodium 134 L (135-145) mmol/L Potassium 3.5 (3.5-5.0) mmol/L Chloride 101 (101-111) mmol/L Carbon Dioxide 23 (22-32) mmol/L Anion Gap 10 (2-11) mmol/L BUN 10 (6-24) mg/dL Creatinine 0.94 (0.67-1.17) mg/dL Est GFR ( Amer) 101.2 (>60) Est GFR (Non-Af Amer) 83.6 (>60) BUN/Creatinine Ratio 10.6 (8-20) Glucose 136 H (70-100) mg/dL Calcium 9.7 (8.6-10.3) mg/dL Total Bilirubin 1.00 (0.2-1.0) mg/dL AST 16 (13-39) U/L ALT 27 (7-52) U/L Alkaline Phosphatase 100 (34-104) U/L Total Protein 7.9 (6.4-8.9) g/dL Albumin 4.4 (3.2-5.2) g/dL Globulin 3.5 (2-4) g/dL Albumin/Globulin Ratio 1.3 (1-3) Assess/Plan/Problems-Billing Assessment: 54 yom no significant PMHx presents with abdominal pain, n and is found to have possible acute pancreatitis. - Patient Problems (1) Abdominal pain Comment: -pt reports colicky RUQ abdominal pain, bloating, nausea -reports this occurred after an episode of binge drinking -CT shows possible early pancreatitis; lipase WNL -mildly elevated bili -concern for GB disease, despite negative on CT scan; US RUQ ordered -pt reports new cough with associated leukocytosis, concerning for referred pain - CXR ordered -simethicone for bloating (2) Tobacco abuse Comment: -nicotine patch (3) DVT prophylaxis Comment: -ambulate (4) Full code status Status and Disposition: Observation. Discharge when stable.
[2019-09-30] MEDS ORDERED: Iohexol 350* (CONTRAST) 500 ML MDV IV ONE (19:16)
[2019-09-30] MEDS: Nicotine Patch Removal NOTE FOLLOW UP SCH (21:52)
[2019-10-01] MEDS: Nicotine* 2MG (FRUIT FLAVOR) GUM PO PRN ×2 (00:08→20:48)
[2019-10-01] MEDS: NS 0.9% 1000 ML** 1,000 ML IV SCH ×3 (01:11→20:55)
[2019-10-01] MEDS: Morphine INJ* 4 MG/ML 1 ML SYRINGE (NEW SYRINGE VERSION) IV PRN ×2 (01:12→06:25)
[2019-10-01 06:26] LABS: ABS Basophils 0.1 10^3/ul (0-0.2); ABS Eosinophils 0.3 10^3/ul (0-0.6); ABS Lymphocytes 1.9 10^3/ul (1.0-4.8); ABS Monocytes 1.1 10^3/ul (0-0.8); ABS Neutrophils 6.9 10^3/ul (1.5-7.7); Eosinophil % 3.1 %; Hematocrit 41 % (42-52); Hemoglobin 14.5 g/dL (14.0-18.0); Lymphocyte % 18.1 %; Mean Corpuscular HGB Conc 36 g/dL (31-36); Mean Corpuscular Hemoglobin 33 pg (27-31); Mean Corpuscular Volume 92 fL (80-94); Mean Platelet Volume 7.4 fL (7.4-10.4); Nucleated Red Blood Cells % 0.1; Platelet Count 175 10^3/uL (150-450); Red Blood Count 4.43 10^6 /uL (4.18-5.48); Red Cell Distribution Width 13 % (10-15); White Blood Count 10.3 10^3/uL (3.5-10.8)
[2019-10-01 06:41] LABS: Albumin 3.5 g/dL (3.2-5.2); Albumin/Globulin Ratio 1.1 (1-3); BUN/Creatinine Ratio 11.7 (8-20); Calcium 8.6 mg/dL (8.6-10.3); EGFR African American 127.4 (>60); EGFR Non-African American 105.3 (>60); Globulin 3.2 g/dL (2-4); Potassium 3.7 mmol/L (3.5-5.0); Total Bilirubin 0.9 mg/dL (0.2-1.0); Total Protein 6.7 g/dL (6.4-8.9)
[2019-10-01] MEDS ORDERED: NS 0.9% 1000 ML** 1,000 ML IV ONE (08:40)
[2019-10-01] MEDS: Nicotine PATCH 14 MG/24 HR* PATCH TRANSDERM SCH (08:52)
[2019-10-01] MEDS ORDERED: Morphine INJ* 2 MG/ML 1 ML SYRINGE (TWO MG - NEW SYRINGE VERSION) IV PRN (10:45)
[2019-10-01] MEDS ORDERED: NS 0.9% 1000 ML** 1,000 ML IV SCH (10:46)
--- NOTE | 2019-10-01 11:15 | PN ---
Subjective Date of Service: 10/01/19 Interval History: Mr. Barahona states that his RUQ/epigastric pain is increased with stress/ agitation. He continues to have pain, but reports there may be a slight decrease in pain. He denies NSAID use, melena, hematochezia. He reports that he is hungry. He reports no recent BM, although he continues to pass flatus. He states that he is frustrated with care here and is considering leaving. He is concerned and states "I wish this one something simple, but no one knows what 's wrong with me;" he was reassured that he has pancreatitis, which he is currently receiving treatment for. No other complaints today. Objective Active Medications: Sodium Chloride (Ns 0.9% 1000 Ml) 1,000 mls @ 200 mls/hr IV PER RATE [facility] Morphine Sulfate (Morphine Inj (Syringe))*) 2 mg IV Q4H PRN PRN Reason: PAIN - SEVERE Last Admin: 10/01/19 11:02 Dose: 2 mg Nicotine (Nicotine Patch 14 Mg/24 Hr*) 1 patch TRANSDERM DAILY [facility] Last Admin: 10/01/19 08:52 Dose: 1 patch Nicotine Polacrilex (Nicotine Gum*) 2 mg PO Q2H PRN PRN Reason: CRAVING Last Admin: 10/01/19 00:08 Dose: 2 mg Ondansetron HCl (Zofran Inj*) 4 mg IV Q6H PRN PRN Reason: NAUSEA Last Admin: 09/29/19 08:05 Dose: 4 mg Pharmacy Profile Note (Nicotine Patch Removal Note*) 1 note FOLLOW UP [address] [facility] Last Admin: 09/30/19 21:52 Dose: Not Given Simethicone (Mylicon Tab*) 80 mg PO Q6H PRN PRN Reason: indigestion, gas Vital Signs: Temp Pulse Resp BP Pulse Ox 98.5 F 87 18 82/60 96 10/01/19 07:15 10/01/19 07:15 10/01/19 11:02 10/01/19 07:15 10/01/19 07:15 Oxygen Devices in Use Now: None Appearance: Mr. Barahona is an overweight middle aged white male who is laying in bed. He appears to be in no acute distress, although is seen holding the RUQ. He is becomes easily agitated. Eyes: No Scleral Icterus Respiratory: Symmetrical Chest Expansion and Respiratory Effort, Clear to Auscultation Cardiovascular: NL Sounds; No Murmurs; No JVD, No Edema, - - sinus tachycardia Abdominal: No Hepatosplenomegaly, - - abdominal distention; BS noted throughout ; RUQ, epigastric TTP Extremities: No Edema, No Clubbing, Cyanosis Neurological: Alert and Oriented x 3 Result Diagrams: 10/01/19 06:05 10/01/19 06:05 Additional Lab and Data: Lab Results 09/29/19 09/29/19 Range/Units 02:38 02:38 WBC 14.7 H (3.5-10.8) 10^3/uL RBC 5.40 (4.18-5.48) 10^6 /uL Hgb 17.3 (14.0-18.0) g/dL Hct 49 (42-52) % MCV 90 (80-94) fL MCH 32 H (27-31) pg MCHC 35 (31-36) g/dL RDW 13 (10-15) % Plt Count 217 (150-450) 10^3/uL MPV 7.3 L (7.4-10.4) fL Neut % (Auto) 73.3 % Lymph % (Auto) 17.3 % [place] % (Auto) 8.4 % Eos % (Auto) 0.6 % Baso % (Auto) 0.4 % Absolute Neuts (auto) 10.8 H (1.5-7.7) 10^3/ul Absolute Lymphs (auto) 2.5 (1.0-4.8) 10^3/ul Absolute Monos (auto) 1.2 H (0-0.8) 10^3/ul Absolute Eos (auto) 0.1 (0-0.6) 10^3/ul Absolute Basos (auto) 0.1 (0-0.2) 10^3/ul Absolute Nucleated RBC 0.0 10^3/ul Nucleated RBC % 0.0 Sodium 134 L (135-145) mmol/L Potassium 3.5 (3.5-5.0) mmol/L Chloride 101 (101-111) mmol/L Carbon Dioxide 23 (22-32) mmol/L Anion Gap 10 (2-11) mmol/L BUN 10 (6-24) mg/dL Creatinine 0.94 (0.67-1.17) mg/dL Est GFR ( Amer) 101.2 (>60) Est GFR (Non-Af Amer) 83.6 (>60) BUN/Creatinine Ratio 10.6 (8-20) Glucose 136 H (70-100) mg/dL Calcium 9.7 (8.6-10.3) mg/dL Total Bilirubin 1.00 (0.2-1.0) mg/dL AST 16 (13-39) U/L ALT 27 (7-52) U/L Alkaline Phosphatase 100 (34-104) U/L Total Protein 7.9 (6.4-8.9) g/dL Albumin 4.4 (3.2-5.2) g/dL Globulin 3.5 (2-4) g/dL Albumin/Globulin Ratio 1.3 (1-3) Assess/Plan/Problems-Billing Assessment: 54 yom no significant PMHx presents with abdominal pain, n and is found to have possible acute pancreatitis. - Patient Problems (1) Abdominal pain Comment: -pt reports colicky RUQ abdominal pain, bloating, nausea -reports this occurred after an episode of binge drinking -CT shows possible early pancreatitis; lipase WNL -mildly elevated bili resolved -US RUQ negative for cholelithiasis, acute pancreatitis -pt reports new cough with associated leukocytosis, concerning for referred pain - CXR, CTA chest unremarkable -simethicone for indigestion, distention -continue treatment for pancreatitis with aggressive IVF, pain management, nausea control (2) Hypotension Comment: -asymptomatic hypotension -did not respond to fluid bolus -suspect this is related to morphine; dose halved -will follow very closely (3) Tobacco abuse Comment: -nicotine patch (4) DVT prophylaxis Comment: -ambulate (5) Full code status Status and Disposition: Observation. Discharge when stable.
--- NOTE | 2019-10-01 20:10 | CONS ---
GASTROENTEROLOGY CONSULTATION REPORT: DATE OF CONSULT: 10/01/19 REASON FOR CONSULT: Pancreatitis. HISTORY OF PRESENT ILLNESS: Mr. Barahona is a 54-year-old gentleman with a history of alcohol abuse, who is admitted with acute pancreatitis. Mr. Barahona provides history. He reports drinking 6 to 8 beers 1 day a week for long chronically. Last week, he drank 6 to 8 beers as well as half a liter of Rayo Ortega. For the 2 days following this, he had watery diarrhea. He then developed significant abdominal pain. Pain is in the epigastric area with radiation to the right upper quadrant. Was also having minimal p.o. intake as this worsened pain. Then developed left chest pain, presented to the ED for evaluation and was subsequently admitted. He has continued to have upper abdominal discomfort and nausea without vomiting since admission. Has been on bowel rest and IV fluids. Labs were notable for elevated white count to peak of 15.4. Lipase not elevated. Imaging suggests pancreatitis. GI consulted. On interview, Mr. Barahona reports that his last dose of morphine was at 10:30 a.m. He said that this dose was smaller than he has normally been getting. He has not felt the need to ask for more medication throughout the late morning and afternoon. His abdominal discomfort is still present, although lessened. Again, he indicates the epigastric and right upper quadrant area. He had previously felt that stress and anxiety were triggering the abdominal pain to worsen. So, he has been trying to remain calm. He also wonders if he might be having "hunger pains" contributing some of his abdominal discomfort as he has not eaten in over 5 days. PAST MEDICAL HISTORY: Possible alcohol abuse. PAST SURGICAL HISTORY: 1. C4-5 diskectomy. 2. Appendectomy. 3. Left Dupuytren contracture release. MEDICATIONS: Senna as needed. ALLERGIES: No known drug allergies. SOCIAL HISTORY: Half a pack per day smoker for nearly 5 decades. Drinks alcohol in a binge fashion as above. Smokes marijuana fairly regularly. 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 with 2 children. REVIEW OF SYSTEMS: A complete 12-point review of systems negative except as mentioned above. PHYSICAL EXAM: Vital signs: Afebrile, heart rate in the 80s, blood pressure 88 /65, 97% on room air. General: Comfortable appearing gentleman, in no acute distress. Quite conversant. HEENT: Mucous membranes moist. Cardiovascular: Regular rate and rhythm. Pulmonary: Breathing comfortably. Lungs in anterior field clear. Abdomen: Mildly distended. Soft. Mildly tender in the epigastrium and right upper quadrant. No rebound tenderness or guarding. Extremities: No significant edema. Neuro: A and O x3. DIAGNOSTIC STUDIES/LAB DATA: White count peaked at 15.4 yesterday, now down to 10.3. Hemoglobin on admission was 17.3, now down to 14.5. Platelet count 175. Sodium 134, BUN is 9, creatinine is 0.7. AST 12, ALT 13, alk phos 76, bilirubin 0.9, lipase on admission was 61. Serum alcohol was negative. Imaging: CT abdomen and pelvis on 09/29/19 was read as inflammatory change in the head of the pancreas, may represent pancreatitis. No walled-off fluid collection seen. Infrarenal abdominal aortic aneurysm 3 x 3.2 cm incidentally noted. Abdominal ultrasound on 09/30/19 commented on decreased echogenicity of the uncinate process of the pancreas. Appears to correlate to the area of inflammatory change seen on CT scan. No gallstones noted. Chest thorax CTA on 09/30/19, was negative for PE. IMPRESSION AND RECOMMENDATION: Mr. Barahona is a 54-year-old gentleman with a history of binge alcohol drinking, who is admitted with acute pancreatitis. The patient describes significant amount of alcohol use followed by abdominal discomfort which has persisted, associated with nausea. Abdominal discomfort is in the epigastrium and right upper quadrant, which is characteristic of pancreatitis. Imaging also demonstrates inflammatory changes around the head of the pancreas consistent with pancreatitis. Lipase is not elevated, although this can be seen in some cases of pancreatitis. Possible that the lipase had already peaked earlier in the symptom presentation as he seems to have been symptomatic for over a week before arriving to the ED. For diagnosis of pancreatitis, the patient should have at least 2 of the 3 features including abdominal pain, imaging findings, and lipase or amylase elevated to more than 3 times the upper limit is normal. As previously mentioned, his pain and imaging findings are suggestive of pancreatitis. I suspect alcohol is the most likely cause given his binge drinking prior to onset of symptoms. I do not have a reason to suspect gallstones as they were none seen on ultrasound. He is not on any medications that are associated with pancreatitis. It does seem that his pain is starting to improve today, which is encouraging. Continue to monitor the patient clinically. Minimize narcotic use as able. Can advance to clear diet. If tolerating well, then slowly advance over the next day or so to a goal of low-fat diet. Should be seen in clinic for followup after the hospitalization. Would plan on an MRCP in 6 to 8 weeks to ensure that the pancreas is otherwise normal in appearance. Would avoid alcohol use particularly in this post pancreatitis period. Thank you very much for this consult. Please contact GI if any clinical change or concerns. [id number]/[facility] #: [id number] ODELL
[2019-10-01] MEDS: Melatonin 3 MG TAB PO SCH (20:48)
[2019-10-01] MEDS: Nicotine Patch Removal NOTE FOLLOW UP SCH (20:57)
[2019-10-02] MEDS: NS 0.9% 1000 ML** 1,000 ML IV SCH ×2 (01:50→07:00)
--- NOTE | 2019-10-02 08:46 | PN ---
Subjective Date of Service: 10/02/19 Interval History: Mr. Barahona states that he has had approximately 8 bouts of loose stool since yesterday; prior to this, he reports approximately 7-10 days of constipation. He denies overt abdominal pain, but notes that the RUQ feels "bruised." He denies n/v. He has tolerated a clear liquid diet well and is eager to continue to advance his diet. He reports and episode of dizziness yesterday while he was standing for an extended period of time waiting to take a shower; this resolved when he sat down. He was then able to shower without difficulty; no further incidences of dizziness/LH. He reports he slept well and think melatonin helped. He has no other complaints today. Objective Active Medications: Sodium Chloride (Ns 0.9% 1000 Ml) 1,000 mls @ 200 mls/hr IV .PER RATE [facility] Last Admin: 10/02/19 07:00 Dose: 200 mls/hr Melatonin (Melatonin) 3 mg PO BEDTIME [facility] Last Admin: 10/01/19 20:48 Dose: 3 mg Morphine Sulfate (Morphine Inj (Syringe))*) 2 mg IV Q4H PRN PRN Reason: PAIN - SEVERE Last Admin: 10/01/19 11:02 Dose: 2 mg Nicotine (Nicotine Patch 14 Mg/24 Hr*) 1 patch TRANSDERM DAILY [facility] Last Admin: 10/01/19 08:52 Dose: 1 patch Nicotine Polacrilex (Nicotine Gum*) 2 mg PO Q2H PRN PRN Reason: CRAVING Last Admin: 10/01/19 20:48 Dose: 2 mg Ondansetron HCl (Zofran Inj*) 4 mg IV Q6H PRN PRN Reason: NAUSEA Last Admin: 09/29/19 08:05 Dose: 4 mg Pharmacy Profile Note (Nicotine Patch Removal Note*) 1 note FOLLOW UP 2100 [facility] Last Admin: 10/01/19 20:57 Dose: Not Given Simethicone (Mylicon Tab*) 80 mg PO Q6H PRN PRN Reason: indigestion, gas Vital Signs: Temp Pulse Resp BP Pulse Ox 97.7 F 81 17 107/75 98 10/02/19 03:21 10/02/19 03:21 10/02/19 03:21 10/02/19 03:21 10/02/19 03:21 Oxygen Devices in Use Now: None Appearance: Mr. Barahona is an overweight, middle-aged white male who is sitting up in bed. He appears well and in no acute distress. He is pleasant, cooperative. Eyes: No Scleral Icterus, PERRLA Ears/Nose/Mouth/Throat: NL Teeth, Lips, Gums, Clear Oropharnyx, Mucous Membranes Moist Neck: NL Appearance and Movements; NL JVP, Trachea Midline Respiratory: Symmetrical Chest Expansion and Respiratory Effort, Clear to Auscultation Cardiovascular: NL Sounds; No Murmurs; No JVD, RRR, No Edema Abdominal: - - BS mildly hypoactive; abdomen appears distended; nontender to palpation throughout Extremities: No Edema, No Clubbing, Cyanosis Neurological: Alert and Oriented x 3 Result Diagrams: 10/01/19 06:05 10/01/19 06:05 Additional Lab and Data: Lab Results 09/29/19 09/29/19 Range/Units 02:38 02:38 WBC 14.7 H (3.5-10.8) 10^3/uL RBC 5.40 (4.18-5.48) 10^6 /uL Hgb 17.3 (14.0-18.0) g/dL Hct 49 (42-52) % MCV 90 (80-94) fL MCH 32 H (27-31) pg MCHC 35 (31-36) g/dL RDW 13 (10-15) % Plt Count 217 (150-450) 10^3/uL MPV 7.3 L (7.4-10.4) fL Neut % (Auto) 73.3 % Lymph % (Auto) 17.3 % Benzie % (Auto) 8.4 % Eos % (Auto) 0.6 % Baso % (Auto) 0.4 % Absolute Neuts (auto) 10.8 H (1.5-7.7) 10^3/ul Absolute Lymphs (auto) 2.5 (1.0-4.8) 10^3/ul Absolute Monos (auto) 1.2 H (0-0.8) 10^3/ul Absolute Eos (auto) 0.1 (0-0.6) 10^3/ul Absolute Basos (auto) 0.1 (0-0.2) 10^3/ul Absolute Nucleated RBC 0.0 10^3/ul Nucleated RBC % 0.0 Sodium 134 L (135-145) mmol/L Potassium 3.5 (3.5-5.0) mmol/L Chloride 101 (101-111) mmol/L Carbon Dioxide 23 (22-32) mmol/L Anion Gap 10 (2-11) mmol/L BUN 10 (6-24) mg/dL Creatinine 0.94 (0.67-1.17) mg/dL Est GFR ( Amer) 101.2 (>60) Est GFR (Non-Af Amer) 83.6 (>60) BUN/Creatinine Ratio 10.6 (8-20) Glucose 136 H (70-100) mg/dL Calcium 9.7 (8.6-10.3) mg/dL Total Bilirubin 1.00 (0.2-1.0) mg/dL AST 16 (13-39) U/L ALT 27 (7-52) U/L Alkaline Phosphatase 100 (34-104) U/L Total Protein 7.9 (6.4-8.9) g/dL Albumin 4.4 (3.2-5.2) g/dL Globulin 3.5 (2-4) g/dL Albumin/Globulin Ratio 1.3 (1-3) Assess/Plan/Problems-Billing Assessment: 54 yom no significant PMHx presents with abdominal pain, n and is found to have possible acute pancreatitis. - Patient Problems (1) Pancreatitis Comment: -pt reports colicky epigastric, RUQ abdominal pain that radiates to the back, bloating, nausea; today, all resolved with mild RUQ discomfort today -reports this occurred after an episode of binge drinking -CT shows possible early pancreatitis; lipase WNL -mildly elevated bili resolved -US RUQ negative for cholelithiasis, acute pancreatitis -pt reports new cough with associated leukocytosis, concerning for referred pain - CXR, CTA chest unremarkable -simethicone for indigestion, distention -continue treatment for pancreatitis -IVF d/c this morning, as patient is tolerating PO -will advance diet to full liquids with plan for soft/low residue at lunch -patient has not required pain rx in appx 24h -continue to monitor (2) Hypotension Comment: -asymptomatic hypotension -did not respond to fluid bolus -suspect this is related to morphine; dose halved -BP trending up since pt stopped morhphine -will follow very closely (3) Tobacco abuse Comment: -nicotine patch, gum (4) DVT prophylaxis Comment: -ambulate (5) Full code status Status and Disposition: Observation. Discharge when stable.
[2019-10-02] MEDS: Nicotine PATCH 14 MG/24 HR* PATCH TRANSDERM SCH (09:41)
[2019-10-02] MEDS: Simethicone TAB* 80 MG TAB.CHEW PO PRN ×2 (15:54→23:35)
[2019-10-02] MEDS: Melatonin 3 MG TAB PO SCH (22:16)
[2019-10-02] MEDS: Nicotine Patch Removal NOTE FOLLOW UP SCH (22:16)
[2019-10-03 07:55] VITALS: BP 139/77
[2019-10-03] MEDS: Nicotine PATCH 14 MG/24 HR* PATCH TRANSDERM SCH (09:48)
--- NOTE | 2019-10-03 13:23 | DS ---
AMENDED REPORT NOW INCLUDES DESIGNATED COSIGNER - ESIGNED BEFORE ADJUSTMENTS DISCHARGE SUMMARY: DATE OF ADMISSION: 09/29/19 DATE OF DISCHARGE: 10/03/19 PROVIDER: Klever Ac NP ATTENDING PHYSICIAN: Dr. Pabon.* (DICTATED BY KLEVER AC NP) PRIMARY CARE PHYSICIAN: None. CONSULTING PHYSICIAN: Dr. Gonzalez. PRIMARY DIAGNOSES: 1. Pancreatitis. 2. Abdominal aortic aneurysm. SECONDARY DIAGNOSES: 1. Binge drinking. 2. Tobacco abuse. PROCEDURES: None. DIAGNOSTIC STUDIES/LAB DATA: Pertinent lab data: Hematocrit 41, MCH 33. D- dimer 569. Sodium 134. AST 12. Triglycerides 115, cholesterol 167, LDL cholesterol 102, HDL cholesterol 42.1. Diagnostic studies: Ultrasound of the abdomen showed heterogeneous decrease in the echogenicity of the uncinate process of the pancreas, which appears to correspond to the area of inflammatory change in acute pancreatitis noted on CT scan, recommend followup imaging. No appreciable cholelithiasis. Chest x-ray showed patchy airspace disease of the left lung base. CTA of the chest showed pulmonary emboli, no additional findings to correlate with the patient's symptomatology. CT abdomen and pelvis, which showed inflammatory changes in the area of the head of the pancreas. This may represent early pancreatitis. No walled-off fluid collection seen. No associated ileus noted. Also showed infrarenal abdominal aortic aneurysm. The aneurysm measures approximately 3 cm in length and 3.2 cm in width. Recommended followup in 1 year. HISTORY OF PRESENT ILLNESS/HOSPITAL COURSE: This is a 54-year-old male with a past medical history significant for appendectomy, diskectomy, and Dupuytren's contractures, who came to the emergency room on 09/29/19 for abdominal pain. He reported that on 09/19/19, he binge drank more than he normally does. He had 6 to 8 beers as well as a half liter of [employer] and on the following several days he had diarrhea and then he felt extremely constipated and developed abdominal pain. He initially presented to the emergency room on 09/26 with chest pain. His cardiac evaluation was negative and he was sent home, but he continued to have pain that then moved into the right upper quadrant and epigastric and therefore he came back. He was unable to eat or drink without having severe heartburn and pain. Ultimately, imaging showed that he had pancreatitis; however, his serum amylase and lipase were normal indicating that likely he was already recovering, however, needed additional support. Initially , he was started on clear liquid diet and was given IV morphine to control his pain; however, as of today he has gone 2 days without needing any medication, has had a normal bowel movement and is able to tolerate regular food. Last night, he felt that he probably ate something heavier than he should have and developed some right upper quadrant discomfort that eased with taking simethicone. Today, he is in good spirits. He denies any pain. He is eating well. I spoke to him about his pattern of alcohol use, which he drinks 6 to 8 beers once a week while playing cards. He states that he will likely continue this pattern though despite being informed that it can trigger pancreatitis as well as other complications related to binge drinking. I educated him about alternating alcoholic beverages with carbonated beverages in order to decrease the number of drinks that he has. Otherwise, he is anxious to go home. REVIEW OF SYSTEMS: A 12-point system review was performed, which was negative for lightheadedness, dizziness, chest pain, palpitations, shortness of breath, abdominal pain, nausea, vomiting, or issues moving his bowel or bladder. However, his abdomen is hard, which he states is per his usual and he does feel slightly bloated, but better than when he first came in. PHYSICAL EXAMINATION: Vital Signs: 97.8 Fahrenheit, 74 pulse, 16 respirations , 94% oxygen on room air, 139/77 blood pressure. General: This is a well- developed gentleman seen sitting up in the bed, in no acute distress. Cardiac: S1, S2 present. Heart rate regular. No murmurs, gallops, or rubs appreciated. Respiratory: Lung sounds clear throughout bilaterally on room air. No accessory muscle use noted. Abdomen: Distended, hard, nontender with positive bowel sounds x4. Musculoskeletal: No clubbing or cyanosis of the digits. Able to move all extremities. Neuro: Sensation intact to light touch. No focal deficits appreciated. Skin is intact with no rashes or lesions appreciated. Psych: He is alert and oriented x4. Thought content organized. DISCHARGE PLAN: He is to be discharged home on a low-residue diet for the next week and then can resume his normal diet. I recommend small and more frequent meals for comfort. His activity is as tolerated. He should return to the hospital should he develop any chest pain, shortness of breath, worsening abdominal pain, or blood in his vomiting or stool. PLAN FOR EACH CONDITION: 1. Pancreatitis. He should eat small and more frequent meals and he can use Tylenol, ibuprofen, or simethicone for discomfort. I recommend also nonpharmacological interventions such as heating pack to the abdomen, stomach massage, and ambulation to help with any gas discomfort. He is to follow up with Dr. Gonzalez within the next 2 weeks and will likely need an MRCP in 4 to 6 weeks. I also would like him to establish primary care with the [facility]. 2. Abdominal aortic aneurysm. As of right now, there is no need for any surgical intervention, though it does require a yearly followup which is one of the reasons why I want him to establish primary care physician. 3. Tobacco use. Recommended cessation of smoking. Declined any home nicotine replacement. DISCHARGE MEDICATIONS: Continued home medications: 1. Senna 2 tabs p.o. daily p.r.n. 2. Simethicone 80 mg p.o. q.6 hours p.r.n. CONDITION UPON DISCHARGE: Stable. DISPOSITION: To home. TIME SPENT: Time spent on the patient is about 40 minutes with 30 of that was spent [id number]. KLEVER AC, DEVICE PROCESSING ENGINEER [id number] #: [id number] MTDD
== END 2019-10-03 11:45 | disposition home or self-care (01) | DRG 282 ==
LOC: ED 02:16 → MED 07:36 → OBSVTOIN 09-30 12:00
PROVIDERS: ADMIT Hospitalist; ATTEND Internal Medicine
DX: K85.90 Acute pancreatitis without necrosis or infection, unspecified (principal); I26.99 Other pulmonary embolism without acute cor pulmonale; I71.4 Abdominal aortic aneurysm, without rupture; I95.9 Hypotension, unspecified; F10.10 Alcohol abuse, uncomplicated; Y90.0 Blood alcohol level of less than 20 mg/100 ml; F17.210 Nicotine dependence, cigarettes, uncomplicated; K59.00 Constipation, unspecified; E66.3 Overweight; Z68.29 Body mass index [BMI] 29.0-29.9, adult; Z82.49 Family history of ischemic heart disease and other diseases of the circulatory system
CPT/HCPCS: 36415; 71046; 71275; 74177; 76705; 80048; 80053; 80061; 80076; 80320; 82150; 83690; 85025; 85027; 85379; 99285; A9270-GY; G0378; G0480; J2270; J2405; Q9967